=== PATIENT | male | born 1960 | race Caucasian/White ===

== ENCOUNTER 2018-05-16 10:32 | Outpatient (CLI) | payer MEDICARE, MEDICAID, SELFPAY ==
[2018-05-16 10:51] LABS: Abs Immature Grans 0.02 k/cumm (0.0-0.09); HCT 31.8 % (40.0-50.0); HGB 11.1 g/dL (13.5-17.5); Mean Corp. HGB Concentration 34.9 g/dL (32.0-36.0); Mean Corpuscular Hemoglobin 30.8 pg (27.0-33.0); Mean Corpuscular Volume 88.3 fL (80-95); Mean Platelet Volume 7.9 fL (8.0-11.0); Platelet Count 375 x1000/uL (130-400); RBC Distribution Width 13.6 % (11.8-14.1); White Blood Cell Count 2.66 k/cumm (4.4-10.8)
[2018-05-16 11:03] LABS: ALT 14 U/L (12-78); AST 14 U/L (15-37); Albumin 2.6 g/dL (3.4-5.0); Alkaline Phosphatase 60 U/L (46-116); Anion Gap 4.4 mmol/L (3-11); BUN 10 mg/dL (7-18); Bilirubin, Total 0.3 mg/dL (0.2-1.0); CO2 33.6 mmol/L (21.0-32.0); Calcium 8.4 mg/dL (8.5-10.1); Chloride 88 mmol/L (98-107); Glucose 111 mg/dL (70-100); Sodium 126 mmol/L (136-145); Total Protein 6.6 g/dL (6.4-8.2)
[2018-05-16 11:26] LABS: Absolute Lymphocyte Count 0.32 k/cumm (1.2-3.4); Absolute Monocyte Count 0.35 k/cumm (0.11-0.7); Atypical Lymphocytes % 2
[2018-05-16 11:27] LABS: Diff Comment Manual Differential; Poikilocytes 1+
== END 2018-05-16 10:33 ==
PROVIDERS: PCP Family Medicine; Visit Provider Internal Medicine Medical Oncology
DX: C15.5 Malignant neoplasm of lower third of esophagus (principal)
CPT/HCPCS: 36415; 80053; 85025

== ENCOUNTER 2018-05-24 12:25 | Outpatient (REF) | payer MEDICARE, MEDICAID, SELFPAY ==
[2018-05-24 12:34] LABS: Abs Immature Grans 0.01 k/cumm (0.0-0.09); HCT 26.3 % (40.0-50.0); Mean Corp. HGB Concentration 34.2 g/dL (32.0-36.0); Mean Corpuscular Hemoglobin 29.9 pg (27.0-33.0); Mean Corpuscular Volume 87.4 fL (80-95); Mean Platelet Volume 8.3 fL (8.0-11.0); Platelet Count 291 x1000/uL (130-400); RBC 3.01 m/cumm (4.50-6.00); RBC Distribution Width 13.4 % (11.8-14.1)
[2018-05-24 12:47] LABS: ALT 10 U/L (12-78); AST 12 U/L (15-37); Albumin 2.1 g/dL (3.4-5.0); Alkaline Phosphatase 45 U/L (46-116); Anion Gap 2.6 mmol/L (3-11); BUN 8 mg/dL (7-18); Bilirubin, Total 0.3 mg/dL (0.2-1.0); CO2 33.4 mmol/L (21.0-32.0); CREATININE 0.49 mg/dL (0.70-1.30); Calcium 8.2 mg/dL (8.5-10.1); Chloride 86 mmol/L (98-107); Glucose 92 mg/dL (70-100); Potassium 4.5 mmol/L (3.5-5.1); Total Protein 5.7 g/dL (6.4-8.2)
[2018-05-24 12:56] LABS: Sodium 122 mmol/L (136-145)
[2018-05-24 13:06] LABS: White Blood Cell Count 1.19 k/cumm (4.4-10.8)
[2018-05-24 13:07] LABS: Absolute Eosinophil Count 0.02 k/cumm (0.0-0.7); Absolute Lymphocyte Count 0.18 k/cumm (1.2-3.4); Absolute Monocyte Count 0.29 k/cumm (0.11-0.7); Atypical Lymphocytes % 0; Diff Comment Manual Differential; Hypochromasia 1+
== END 2018-05-24 12:26 ==
LOC: LBN 12:25
PROVIDERS: PCP Family Medicine; Visit Provider Internal Medicine
DX: C15.5 Malignant neoplasm of lower third of esophagus (principal)
CPT/HCPCS: 80053; 85025

== ENCOUNTER 2018-05-30 09:01 | Outpatient (RCR) | payer MEDICARE, MEDICAID, SELFPAY ==
[2018-05-30] MEDS: Normal Saline Flush 10 ML SYR IVP (09:05)
[2018-05-30 09:35] LABS: HCT 27.8 % (40.0-50.0); HGB 9.7 g/dL (13.5-17.5); Mean Corp. HGB Concentration 34.9 g/dL (32.0-36.0); Mean Corpuscular Hemoglobin 30.5 pg (27.0-33.0); Mean Corpuscular Volume 87.4 fL (80-95); Platelet Count 307 x1000/uL (130-400); RBC 3.18 m/cumm (4.50-6.00); RBC Distribution Width 13.6 % (11.8-14.1); White Blood Cell Count 2.94 k/cumm (4.4-10.8)
[2018-05-30 09:46] LABS: ALT 10 U/L (12-78); AST 14 U/L (15-37); Albumin 1.9 g/dL (3.4-5.0); Alkaline Phosphatase 49 U/L (46-116); Anion Gap 5.3 mmol/L (3-11); BUN 10 mg/dL (7-18); Bilirubin, Total 0.4 mg/dL (0.2-1.0); CO2 31.7 mmol/L (21.0-32.0); Calcium 7.8 mg/dL (8.5-10.1); Chloride 84 mmol/L (98-107); Glucose 99 mg/dL (70-100); Potassium 4.6 mmol/L (3.5-5.1); Total Protein 5.5 g/dL (6.4-8.2)
[2018-05-30 09:56] LABS: Absolute Lymphocyte Count 0.26 k/cumm (1.2-3.4); Absolute Monocyte Count 0.21 k/cumm (0.11-0.7); Absolute Neutrophil Count 2.47 k/cumm (1.2-6.7)
[2018-05-30 09:57] LABS: Diff Comment Manual Differential; Polychromasia Present
[2018-05-30 10:01] LABS: Sodium 121 mmol/L (136-145)
== END 2018-06-10 ==
LOC: INF 09:01
PROVIDERS: PCP Family Medicine; Visit Provider Internal Medicine Medical Oncology
DX: C15.5 Malignant neoplasm of lower third of esophagus (principal); Z45.2 Encounter for adjustment and management of vascular access device
CPT/HCPCS: 36591; 80053; 85025